=== PATIENT | female | born 1945 | race Caucasian/White ===

== ENCOUNTER → 2021-10-14 | Outpatient (CLI) | payer OTHER ==
[~2021-10-14] MED LIST: ALLOPURINOL100 MG PO; LEVOTHYROXINE; LOSARTAN-HCTZ1 EAC1 PO; METFORMIN HCL500 MG PO; METOPROLOL SUCC50 MG PO; OMEPRAZOLE40 MG PO; PRAVASTATIN SOD40 MG PO; SERTRALINE HCL100 MG PO
[2021-10-14 11:40] LABS: HEMOGLOBIN 12.2 gm/dl (12.3-15.3); RED BLOOD COUNT 4.14 M/UL (4.00-5.10); WHITE BLOOD COUNT 7.1 K/UL (4.5-11.0)
== END ==
LOC: OPSV2 10:00
PROVIDERS: Orthopaedic Surgery
DX: Z01.818 Encounter for other preprocedural examination (principal); M17.12 Unilateral primary osteoarthritis, left knee
CPT/HCPCS: 80048; 83036; 85027; 93005; Q9967

== ENCOUNTER → 2021-10-27 | Outpatient (CLI) | payer OTHER ==
[~2021-10-27] MED LIST changes: +AMLODIPINE BESYL5 MG PO; +CYCLOBENZAPRINE10 MG PO; +ELIQUIS2.5 MG PO; +HYDROCODON-ACE1 EAC2 PO; +LEVOTHYROXINE100 MCG PO; +LOSARTAN POTAS100 MG PO; -LOSARTAN-HCTZ1 EAC1 PO; +METOPROLOL SUC100 MG PO; -METOPROLOL SUCC50 MG PO; +TRIAMTERENE-HC1 EAC1 PO
== END ==
LOC: LAB 13:20
PROVIDERS: Orthopaedic Surgery
DX: Z01.812 Encounter for preprocedural laboratory examination (principal)
CPT/HCPCS: 80048; 86850; 86900; 86901

== ENCOUNTER 2021-10-28 05:59 | Day surgery (SDC) | payer OTHER ==
[~2021-10-28] VITALS: Ht 160 cm; Wt 80.7 kg
[~2021-10-28 05:59] MED LIST changes: -AMLODIPINE BESYL5 MG PO; -CYCLOBENZAPRINE10 MG PO; -ELIQUIS2.5 MG PO; -HYDROCODON-ACE1 EAC2 PO; -LEVOTHYROXINE100 MCG PO; -TRIAMTERENE-HC1 EAC1 PO
[2021-10-28] MEDS ORDERED: LEVOTHYROXINE100 MCG PO (06:50)
[2021-10-28] MEDS ORDERED: HYDROCODON-ACE1 EAC2 PO (12:31)
[2021-10-28] MEDS ORDERED: ELIQUIS2.5 MG PO (12:31)
[2021-10-28] MEDS ORDERED: TRIAMTERENE-HC1 EAC1 PO (14:48)
[2021-10-28] MEDS ORDERED: AMLODIPINE BESYL5 MG PO (15:09)
[2021-10-28] MEDS ORDERED: CYCLOBENZAPRINE10 MG PO (15:09)
== END 2021-10-29 12:34 | disposition home or self-care (01) ==
LOC: OR 05:59 → CCU 05:59 → OR 08:50 → CCU 13:32 → OR 13:32
DX: M17.12 Unilateral primary osteoarthritis, left knee (principal); G89.29 Other chronic pain; I10 Essential (primary) hypertension; E78.5 Hyperlipidemia, unspecified; K21.9 Gastro-esophageal reflux disease without esophagitis; E07.9 Disorder of thyroid, unspecified; E11.9 Type 2 diabetes mellitus without complications; I49.9 Cardiac arrhythmia, unspecified; M10.9 Gout, unspecified; Z91.041 Radiographic dye allergy status; Z79.84 Long term (current) use of oral hypoglycemic drugs; Z79.899 Other long term (current) drug therapy
CPT/HCPCS: 73560; 82962; 97116-GP-CQ; 97161; 97166; 97530; 97530-GP-CQ; 97535; C1713; C1776; J0360; J0690; J1100; J2250; J2270; J2274; J2405; J2704; J2795; J3010; J3370